=== PATIENT | male | born 1955 | race Caucasian/White ===

== ENCOUNTER 2019-06-11 08:16 | Day surgery (SDC) | payer OTHER ==
[~2019-06-11] VITALS: Ht 177.8 cm; Wt 86.2 kg
[~2019-06-11 08:16] MED LIST: ACYC800 PO; ESOM20 PO
== END 2019-06-11 10:32 | disposition home or self-care (01) ==
LOC: ORSCSDS 08:16
PROVIDERS: Internal Medicine Gastroenterology
PROC: 0DBL8ZX Excision of Transverse Colon, Via Natural or Artificial Opening Endoscopic, Diagnostic (ICD-10-PCS; principal; 2019-06-11 09:45)
PROC: 0DBN8ZX Excision of Sigmoid Colon, Via Natural or Artificial Opening Endoscopic, Diagnostic (ICD-10-PCS; principal; 2019-06-11 09:45)
DX: Z12.11 Encounter for screening for malignant neoplasm of colon (principal); D12.3 Benign neoplasm of transverse colon; K63.5 Polyp of colon; K57.30 Diverticulosis of large intestine without perforation or abscess without bleeding; K64.8 Other hemorrhoids; Z79.899 Other long term (current) drug therapy
CPT/HCPCS: 88305; J0461; J2405; J2704; J7120

== ENCOUNTER 2020-01-25 10:51 | Day surgery (SDC) | payer OTHER ==
[~2020-01-25] VITALS: Ht 180.3 cm; Wt 87.8 kg
[2020-01-26] MEDS ORDERED: IBUP800 PO (07:10)
[2020-01-26] MEDS ORDERED: CODACE30 PO (07:10)
== END 2020-01-25 12:16 | disposition home or self-care (01) ==
LOC: ORSCSDS 10:51
PROVIDERS: Internal Medicine Gastroenterology
PROC: 0DB68ZX Excision of Stomach, Via Natural or Artificial Opening Endoscopic, Diagnostic (ICD-10-PCS; principal; 2020-01-25 12:15)
PROC: 0DB58ZX Excision of Esophagus, Via Natural or Artificial Opening Endoscopic, Diagnostic (ICD-10-PCS; principal; 2020-01-25 12:15)
DX: R12 Heartburn (principal); K31.7 Polyp of stomach and duodenum; K64.4 Residual hemorrhoidal skin tags; K29.70 Gastritis, unspecified, without bleeding; Z79.899 Other long term (current) drug therapy
CPT/HCPCS: 88305; 88342; J2704; J7120

== ENCOUNTER → 2020-02-14 | Outpatient (CLI) | payer OTHER ==
[~2020-02-14] MED LIST changes: +CODACE30 PO; +IBUP800 PO
[2020-02-14 13:00] LABS: Hematocrit 48.4 % (37.0-53.0); Hemoglobin 15.7 g/dL (13.5-17.5); Mean Corpuscular HGB 28.7 pg (26.0-34.0); Mean Corpuscular HGB Conc 32.4 g/dL (31.5-36.5); Mean Corpuscular Volume 89 fL (80-100); Mean Platelet Volume 11.6 fL (9.1-12.4); Platelet Count 248 K/mm3 (150-400); RDW Coefficient Variation 16.1 % (11.7-14.2); RDW Standard Deviation 52.2 fL (35.1-46.3); Red Blood Cell Count 5.47 M/mm3 (4.30-5.90); White Blood Cell Count 8.83 K/mm3 (4.00-11.30)
[2020-02-14 14:42] LABS: Percent Saturation 15.3 % (20.0-50.0)
== END | disposition home or self-care (01) ==
LOC: LAB 12:52 → LAB SHORT 12:52
PROVIDERS: Internal Medicine Hematology & Oncology
DX: D72.820 Lymphocytosis (symptomatic) (principal); R53.81 Other malaise; R53.83 Other fatigue
CPT/HCPCS: 83540; 83550; 85027

== ENCOUNTER → 2020-04-11 | Outpatient (CLI) | payer OTHER ==
[2020-04-11 20:28] LABS: Percent Saturation 42.7 % (20.0-50.0)
== END | disposition home or self-care (01) ==
LOC: LAB SHORT 17:23 → LAB 17:23
PROVIDERS: Internal Medicine Hematology & Oncology
DX: C91.10 Chronic lymphocytic leukemia of B-cell type not having achieved remission (principal); D50.9 Iron deficiency anemia, unspecified
CPT/HCPCS: 82607; 82728; 82746; 83540; 83550

== ENCOUNTER 2022-07-20 10:09 | Emergency (ER) | payer OTHER ==
[~2022-07-20] VITALS: Ht 177.8 cm; Wt 90.7 kg
[2022-07-20] MEDS ORDERED: Norco 5-325 Ta1 EACH PO ×2 (12:13→12:27)
== END 2022-07-20 12:30 | disposition home or self-care (01) ==
LOC: ER 10:09
DX: R07.81 Pleurodynia (principal); K21.9 Gastro-esophageal reflux disease without esophagitis; W01.0XXA Fall on same level from slipping, tripping and stumbling without subsequent striking against object, initial encounter; Z79.899 Other long term (current) drug therapy
CPT/HCPCS: 71101

== ENCOUNTER 2024-10-06 11:30 | Day surgery (SDC) | payer OTHER ==
[~2024-10-06] VITALS: Ht 180.3 cm; Wt 88.7 kg
[~2024-10-06 11:30] MED LIST changes: +Lactated Ringer's 1,000 ML IV ONE; +Norco 5-325 Ta1 EACH PO; +propofoL 50 ML IV ONE
[2024-10-06] MEDS ORDERED: ATOR20 (11:52)
[2024-10-06] MEDS ORDERED: CYCL10 (11:52)
[2024-10-06] MEDS ORDERED: Lactated Ringer's 1,000 ML IV ONE (12:23)
[2024-10-06 13:13] VITALS: BP 111/79
== END 2024-10-06 13:17 | disposition home or self-care (01) ==
LOC: ORSCSDS 11:30
PROVIDERS: Specialist
PROC: 0DJD8ZZ Inspection of Lower Intestinal Tract, Via Natural or Artificial Opening Endoscopic (ICD-10-PCS; principal; 2024-10-06 12:45)
DX: Z12.11 Encounter for screening for malignant neoplasm of colon (principal); Z86.0101 Personal history of adenomatous and serrated colon polyps; Z86.0100 Personal history of colon polyps, unspecified; K64.8 Other hemorrhoids; K57.30 Diverticulosis of large intestine without perforation or abscess without bleeding; I25.10 Atherosclerotic heart disease of native coronary artery without angina pectoris; I10 Essential (primary) hypertension; K21.9 Gastro-esophageal reflux disease without esophagitis; K76.0 Fatty (change of) liver, not elsewhere classified; E78.5 Hyperlipidemia, unspecified; Z79.899 Other long term (current) drug therapy
CPT/HCPCS: J2704; J7120